=== PATIENT | male | born 1970 | race Caucasian/White ===

== ENCOUNTER 2020-08-29 10:56 | Emergency (ER) | payer SELFPAY ==
[~2020-08-29] VITALS: Ht 180.3 cm; Wt 74.7 kg
--- NOTE | 2020-08-29 11:20 | NUR ---
PT AMBULATORY TO ROOM FROM TRIAGE, CHANGED INTO GOWN, MONITORS IN PLACE. CALL LIGHT WITHIN REACH. PT C/O R-TESTICULAR PAIN FOR 3-4 DAYS, PT STATES HIS SEMEN HAS BEEN BLOODY & BROWN. PT DENIES ANY TROUBLE URINATING.
--- NOTE | 2020-08-29 11:23 | NUR ---
ERP AT BS FOR EVAL
[2020-08-29] MEDS ORDERED: SODIUM CHLORIDE FLUSH 10ML SYR IVF ONE (11:30)
[2020-08-29] MEDS ORDERED: SODIUM CHLORIDE 0.9% 1,000ML IVBOLUS ONE (11:30)
[2020-08-29] MEDS ORDERED: ONDANSETRON 2MG/ML, 2ML IVPush ONE (11:30)
[2020-08-29] MEDS ORDERED: ONDANSETRON 2MG/ML, 2ML ONE (11:41)
[2020-08-29] MEDS ORDERED: MORPHINE SULFATE 4 MG/ML, 1ML ONE ×2 (11:42→12:57)
[2020-08-29 11:54] LABS: BASOPHILS % (AUTO) 1 % (0-1); EOSINOPHILS % (AUTO) 0 % (1-7); LYMPHOCYTES % (AUTO) 6 % (22-44); MEAN CORPUSCULAR HEMOGLOBIN 34.1 pg (27.5-34.5); MEAN CORPUSCULAR HGB CONC 34.2 g/dL (33.2-36.2); MEAN PLATELET VOLUME 7.8 fL (7.4-10.4); MONOCYTES % (AUTO) 7 % (2-9); NEUTROPHILS % (AUTO) 86 % (42-75); PLATELET COUNT 278 x10^3/uL (130-400); RED BLOOD COUNT 3.69 x10^6/uL (4.38-5.82); RED CELL DISTRIBUTION WIDTH 13.3 % (9.4-14.8)
[2020-08-29] MEDS: MORPHINE SULFATE 4 MG/ML, 1ML IVPush PRN ×2 (11:55→12:59)
--- NOTE | 2020-08-29 11:55 | NUR ---
PIV PLACED, PT MEDICATED PER EMAR. NADN/VSS. CALL LIGHT WITHIN REACH. AT BS
--- NOTE | 2020-08-29 11:57 | NUR ---
PT UNABLE TO VOID AT THIS TIME
[2020-08-29 12:05] LABS: ALBUMIN 3.2 g/dL (3.4-5.0); ANION GAP 5 mmol/L (5-15); CALCIUM 8.8 mg/dL (8.5-10.1); CHLORIDE 107 mmol/L (98-107)
[2020-08-29 12:08] LABS: ALANINE AMINOTRANSFERASE 24 U/L (12-78); ALKALINE PHOSPHATASE 85 U/L (45-117); BILIRUBIN,TOTAL 0.7 mg/dL (0.2-1.0); TOTAL PROTEIN 7.3 g/dL (6.4-8.2)
[2020-08-29 13:00] VITALS: BP 158/107
--- NOTE | 2020-08-29 13:00 | NUR ---
PT MEDICATED PER EMAR, NADN/VSS. AT BS. CALL LIGHT WITHIN REACH, CONNECTED TO MONITORS. BED IN LOWEST POSITION. NO NEEDS AT THIS TIME
[2020-08-29 13:12] LABS: MICROSCOPIC INDICATED
[2020-08-29] MEDS ORDERED: CEFTRIAXONE 1,000 MG in DEXTROSE 5% 50 ML IVPB ONE (14:00)
[2020-08-29] MEDS ORDERED: PLEASE ENTER ALLERGIES MC SCH (14:00)
--- NOTE | 2020-08-29 14:20 | NUR ---
Patient given discharge instructions and RX, they have confirmed that they understand the instructions. Patient ambulatory with steady gait.
== END 2020-08-29 14:35 | disposition home or self-care (01) ==
LOC: ED 11:23
DX: N30.00 Acute cystitis without hematuria (principal); N45.1 Epididymitis; N45.2 Orchitis; F17.200 Nicotine dependence, unspecified, uncomplicated; Z86.19 Personal history of other infectious and parasitic diseases
CPT/HCPCS: 36415; 76870; 80053; 81001; 85025; 87077; 87086; 96361; 96374; 96375; 96376; 99284; J0696; J2270; J2405; J7030; 87186